=== PATIENT | male | born 1935 | race Hispanic/Latino ===

== ENCOUNTER 2016-11-16 06:25 | Day surgery (SDC) | payer MEDICARE ==
[~2016-11-16 06:25] MED LIST: XYLOCAINE MPF 2% ONE
[2016-11-16] MEDS ORDERED: WATER FOR IRRIG STERILE IR ONE (07:24)
[2016-11-16] MEDS ORDERED: XYLOCAINE 1% 20 mL ONE (07:25)
[2016-11-16] MEDS ORDERED: LIDOCAINE VISCOUS 2% ONE (07:25)
[2016-11-16] MEDS ORDERED: NACL 0.9% 1000 ML 1,000 ML ONE ×2 (07:25→08:36)
[2016-11-16] MEDS ORDERED: HURRICAINE ONE 20% TOPICAL SPRAY MM ×2 (07:26→08:00)
[2016-11-16] MEDS ORDERED: NEO SYNEPHRINE ONE (07:26)
[2016-11-16] MEDS ORDERED: DIPRIVAN 10 MG/ML IV ONE (07:47)
[2016-11-16] MEDS ORDERED: SUBLIMAZE ONE (07:48)
[2016-11-16] MEDS ORDERED: LIDOCAINE VISCOUS 2% PO ONE ×4 (07:50→07:56)
--- NOTE | 2016-11-16 08:13 | Anesthesia Day of Surgery ---
Anesthesia Day of Surgery - Day of Surgery Patient Examined: Yes Patient H&P Reviewed: Yes Patient is NPO: Yes
--- NOTE | 2016-11-16 08:15 | Anesthesia Consultation ---
Anesthesia Consult and Med Hx Date of service: 11/16/16 - Airway Anesthetic Teeth Evaluation: Edentulous ROM Head & Neck: Adequate Mental/Hyoid Distance: Adequate Mallampati Class: Class III Intubation Access Assessment: Probably Good - Pulmonary Exam CTA: Yes - Cardiac Exam Cardiac Exam: RRR - Pre-Operative Health Status ASA Pre-Surgery Classification: ASA3 Proposed Anesthetic Plan: MAC - Pulmonary Hx Smoking: Yes (quit in ) Hx Asthma: No COPD: Yes Hx Sleep Apnea: Yes (cpap use) - Cardiovascular System Hx Hypertension: Yes Hx Heart Attack/AMI: No Hx Percutaneous Transluminal Coronary Angioplasty (PTCA): No - Central Nervous System Hx Seizures: No CVA: No Hx Psychiatric Problems: No - Gastrointestinal Hx Gastroesophageal Reflux Disease: Yes - Endocrine Hx Renal Disease: No Hx Liver Disease: No Hx Non-Insulin Dependent Diabetes: No Hx Hypothyroidism: Yes - Other Systems Hx Alcohol Use: No Hx Cancer: Yes (skin cancers) - Additional Comments Anesthesia Medical History Comments: NAC
[2016-11-16] MEDS ORDERED: XYLOCAINE 1% 20 mL INFILTRATI ONE ×6 (08:16→08:21)
[2016-11-16] MEDS ORDERED: NACL 0.9% 1000 ML 1,000 ML IV SCH (08:30)
--- NOTE | 2016-11-16 08:50 | Operative Report ---
Operative Report Operative Report: Procedure: Flexible bronchoscopy Surgeon: Kwasi Ramirez MD Anesthesia: MAC Pre op DX: Hemoptysis Post op Dx: Same, no active bleeding and no source of bleeding. Small amout of old blood in the airways Procedure and findings: After anesthesia, bronchosope was inroduced thru right nostril. Vocal cords were normal. Bronchoscpoe was taken to trachea which is normal. Alta normal. Small amount od old blood noted in lower trachea. Right bronchial tree was normal excet for minor ridging suggestive of mild submucosal edema. Small amount of old blood was noted. Left bronchial tree was normal. Washings were taken from all lobes and sent to the lab. No abnormal lesion was noted. Pt tolerated the procedure well
--- NOTE | 2016-11-16 08:58 | Post Anesthesia Evaluation ---
- Post Anesthesia Evaluation Patient Participated: Yes Airway Patent: Yes Stable Respiratory Function: Yes Nausea/Vomiting: No Temp > 96.8F: Yes Pain Manageable: Yes Adequeate Hydration: Yes Anesthesia Complications: No Block Receding Appropriately: Not Applicable Patient on Ventilator: No
[2016-11-16 09:55] VITALS: BP 132/73
[2016-11-16 10:31] LABS: INR 1.63 (0.87-1.13)
== END 2016-11-16 06:26 | disposition home or self-care (01) ==
LOC: GIO 06:25
PROVIDERS: ATTEND Internal Medicine Critical Care Medicine
DX: R04.2 Hemoptysis (principal); I48.91 Unspecified atrial fibrillation; J44.1 Chronic obstructive pulmonary disease with (acute) exacerbation; E11.9 Type 2 diabetes mellitus without complications; I10 Essential (primary) hypertension; Z98.890 Other specified postprocedural states; Z79.899 Other long term (current) drug therapy; Z87.891 Personal history of nicotine dependence
CPT/HCPCS: 31622; 36415; 85610; 87102; 87116; 87220; 88112; J2704; J3010; J7030; J2370